=== PATIENT | male | born 1945 | race Caucasian/White ===

== ENCOUNTER 2020-04-30 07:50 | Emergency (ER) | payer MEDICARE, OTHER ==
[2020-04-30] MEDS ORDERED: Bacitracin Oint 1 GM U/D Packet TOP ONE (08:02)
[2020-04-30] MEDS ORDERED: Diphtheria,Pertussis(Acell),Tetanus Vaccine 0.5 ML SDV IM ONE (08:19)
--- NOTE | 2020-04-30 08:22 | EDM.PDOC ---
ED HPI GENERAL MEDICAL PROBLEM - General Chief Complaint: Laceration Stated Complaint: HOOK IN R THUMB Time Seen by Provider: 04/30/20 08:05 Source of Information: Reports: Patient History Limitations: Reports: No Limitations - History of Present Illness INITIAL COMMENTS - FREE TEXT/NARRATIVE: 75 male with 1 noemí of a treble hook embedded into his left thumb along the radial side of the nail. No other complaints. Onset: Sudden Duration: Hour(s): (2 hours ago) Location: Reports: Upper Extremity, Left Associated Symptoms: Reports: No Other Symptoms Left Finger-Thumb Pain Score (Numeric/FACES): 3 - Related Data Allergies Allergy/AdvReac Type Severity Reaction Status Date / Time Penicillins Allergy Other Verified 04/30/20 08:07 Home Meds: Home Meds Albuterol Sulfate 1 dose INH ASDIRECTED 04/30/20 [History] Allopurinol [Zyloprim] 100 mg PO DAILY 04/30/20 [History] Budesonide [Budesonide ER] 9 mg INH ASDIRECTED 04/30/20 [History] Diltiazem HCl [Diltiazem 24Hr Cd] 180 mg PO DAILY 04/30/20 [History] Insulin Aspart [NovoLOG] 10 unit SUBCUT TID 04/30/20 [History] Insulin Glarg,Human.Rec.Analog [Lantus Solostar] 65 unit SUBCUT DAILY 04/30/20 [History] Montelukast [Singulair] 10 mg PO DAILY 04/30/20 [History] Nitroglycerin [Nitrostat] 1 dose SL ASDIRECTED 04/30/20 [History] Rivaroxaban [Xarelto] 20 mg PO DAILY 04/30/20 [History] Tamsulosin [Flomax] 0.4 mg PO DAILY 04/30/20 [History] atorvaSTATin Calcium [Atorvastatin Calcium] 40 mg PO DAILY 04/30/20 [History] lisinopriL [Lisinopril] 5 mg PO DAILY 04/30/20 [History] metFORMIN HCl [Metformin HCl ER] 1,000 mg PO BID 04/30/20 [History] Past Medical History HEENT History: Reports: Cataract, Other (See Below) Other HEENT History: lazy eye Cardiovascular History: Reports: High Cholesterol, Hypertension, Other (See Below) Other Cardiovascular History: a-flutter Respiratory History: Reports: Asthma Genitourinary History: Reports: Renal Calculus Endocrine/Metabolic History: Reports: Diabetes, Type II - Past Surgical History HEENT Surgical History: Reports: Cataract Surgery Cardiovascular Surgical History: Reports: Cardiac Ablation, Coronary Artery Nando nt GI Surgical History: Reports: Appendectomy, Cholecystectomy Male Surgical History: Reports: Kidney Stone Extraction, Lithotripsy ([facility]) Social & Family History - Tobacco Use Smoking Status *Q: Never Smoker - Caffeine Use Caffeine Use: Reports: Coffee - Recreational Drug Use Recreational Drug Use: No ED ROS GENERAL - Review of Systems Review Of Systems: See Below Constitutional: Denies: Fever, Chills Respiratory: Denies: Shortness of Breath Cardiovascular: Denies: Chest Pain Neurological: Reports: No Symptoms ED EXAM, SKIN/RASH Exam: See Below Exam Limited By: No Limitations General Appearance: Alert, No Apparent Distress Head: Atraumatic Respiratory/Chest: No Respiratory Distress Extremities: Other (There is 1 noemí of a treble hook embedded into the soft tissue along the side of the nail of the left thumb) Course - Vital Signs Last Recorded V/S: Last Vital Signs Temp 96.4 F L 04/30/20 08:06 Pulse 68 04/30/20 08:06 Resp 15 04/30/20 08:06 BP 142/54 H 04/30/20 08:06 Pulse Ox 97 04/30/20 08:06 - Orders/Labs/Meds Orders: Active Orders 24 hr Category Date Time Status Vaccines to be Administered [RC] PER UNIT ROUTINE Care 04/30/20 08:19 Active Meds: Medications Discontinued Medications Generic Name Dose Route Start Last Admin Trade Name Deja PRN Reason Stop Dose Admin Bacitracin 1 dose 04/30/20 08:02 04/30/20 08:18 Bacitracin Oint 1 Gm TOP 04/30/20 08:03 1 dose ONETIME ONE Administration Diphtheria/Tetanus/Acell Pertussis 0.5 ml 04/30/20 08:19 04/30/20 08:33 Adacel IM 04/30/20 08:20 0.5 ml .ONCE ONE Administration Lidocaine HCl 5 ml 04/30/20 08:02 04/30/20 08:18 Xylocaine-Mpf 1% INJECT 04/30/20 08:03 5 ml ONETIME ONE Administration - Re-Assessments/Exams Free Text/Narrative Re-Assessment/Exam: 04/30/20 08:21 The area was cleansed with alcohol, infiltrated with 1% lidocaine and the hook removed with countertraction without complications. It was again cleansed thoroughly with alcohol, topical bacitracin was applied and a Band-Aid. He will recheck if concerns of infection. 04/30/20 09:02 Tdap booster was given Departure - Departure Time of Disposition: 08:50 Disposition: Home, Self-Care 01 Clinical Impression: [place] injury to finger Qualifiers: Encounter type: initial encounter Laterality: left Qualified Code(s): S69.92XA - Unspecified injury of left wrist, hand and finger(s), initial encounter - Discharge Information Instructions: Puncture Wound, [id number] Referrals: PCP,None [Primary Care Provider] - Forms: ED Department Discharge Care Plan Goals: Keep wound covered and clean while healing, and recheck if concerns of infection or not healing satisfactorily. Sepsis Event Note (ED) - Evaluation Sepsis Screening Result: No Definite Risk - Focused Exam Vital Signs: Vital Signs Temp Pulse Resp BP Pulse Ox 04/30/20 08:06 96.4 F L 68 15 142/54 H 97 04/30/20 08:05 96.4 F L 68 15 142/54 H 97 - My Orders Last 24 Hours: My Active Orders 04/30/20 08:19 Vaccines to be Administered [RC] PER UNIT ROUTINE - Assessment/Plan Last 24 Hours: My Active Orders 04/30/20 08:19 Vaccines to be Administered [RC] PER UNIT ROUTINE
== END 2020-04-30 09:00 | disposition home or self-care (01) ==
LOC: JP.ED 07:50
DX: S60.352A Superficial foreign body of left thumb, initial encounter (principal); E78.00 Pure hypercholesterolemia, unspecified; I10 Essential (primary) hypertension; J45.909 Unspecified asthma, uncomplicated; E11.9 Type 2 diabetes mellitus without complications; Z88.0 Allergy status to penicillin; Z79.899 Other long term (current) drug therapy; Z79.4 Long term (current) use of insulin; Z23 Encounter for immunization; W45.8XXA Other foreign body or object entering through skin, initial encounter
CPT/HCPCS: 90471; 90715; 99282; J2001